=== PATIENT | female | born 2000 | race American Indian/Alaskan Native ===

== ENCOUNTER 2020-09-22 09:19 | Emergency (ER) | payer BC, OTHER ==
--- NOTE | 2020-09-22 09:50 | EDM.PDOC ---
ED HPI GENERAL MEDICAL PROBLEM - General Chief Complaint: ENT Problem Stated Complaint: right ear heard a pop now load buzzing&sore Time Seen by Provider: 09/22/20 09:40 Source of Information: Reports: Patient History Limitations: Reports: No Limitations - History of Present Illness INITIAL COMMENTS - FREE TEXT/NARRATIVE: This 20 yo female patient reports to the ED with right ear pain. The patient reports she woke up this morning at 0630 to a "pop" in her right ear. Since that time, the patient has been experiencing muffled hearing, ringing in her right ear and pain to the right ear. The patient does have a history of numerous ear infections as well as environmental allergies. Onset: Today Onset Date: 09/22/20 Onset Time: 06:30 Duration: Constant Location: Reports: Head (Right ear) Quality: Reports: Ache, Dull, Pressure Severity: Moderate Improves with: Reports: None Worsens with: Reports: None Context: Reports: Other Right Ear Pain Score (Numeric/FACES): 6 - Related Data Allergies Allergy/AdvReac Type Severity Reaction Status Date / Time azithromycin Allergy Hives Verified 09/22/20 09:27 Home Meds: Home Meds Amitriptyline [Elavil] 10 mg PO DAILY 09/22/20 [History] Norethindrone-Ethin. Estradiol [Nortrel 7-7-7-28 Tablet] 1 tab PO DAILY 09/22/20 [History] Vits #93/Iron Fum/FA [ Formula Tablet] 1 tab PO DAILY 09/22/20 [History] Past Medical History HEENT History: Reports: Otitis Media Psychiatric History: Reports: Other (See Below) Other Psychiatric History: insomnia Social & Family History - Tobacco Use Tobacco Use Status *Q: Never Tobacco User - Recreational Drug Use Recreational Drug Use: No ED ROS ENT - Review of Systems Review Of Systems: Comprehensive ROS is negative, except as noted in HPI. ED EXAM, ENT - Physical Exam Exam: See Below Exam Limited By: No Limitations General Appearance: Alert, WD/WN, Mild Distress Eye Exam: Bilateral Eye: EOMI, Normal Inspection, PERRL Ears: Other (Right TM retracted) Nose: Normal Inspection, Normal Mucousa, No Blood Mouth/Throat: Normal Inspection, Normal Gums, Normal Lips, Normal Oropharynx, Normal Teeth Head: Atraumatic, Normocephalic Neck: Normal Inspection, Supple, Non-Tender, Full Range of Motion Respiratory/Chest: No Respiratory Distress, Lungs Clear, Normal Breath Sounds, No Accessory Muscle Use, Chest Non-Tender Cardiovascular: Normal Peripheral Pulses, Regular Rate, Rhythm, No Edema, No Gallop, No JVD, No Murmur, No Rub GI/Abdominal: Normal Bowel Sounds, Soft, Non-Tender, No Organomegaly, No Distention, No Abnormal Bruit, No Mass (Female) Exam: Deferred Rectal (Female) Exam: Deferred Back: Normal Inspection, Full Range of Motion Extremities: Normal Inspection, Normal Range of Motion, Non-Tender, No Pedal Edema, Normal Capillary Refill Neurological: Alert, Oriented, CN II-XII Intact, Normal Cognition, Normal Gait, Normal Reflexes, No Motor/Sensory Deficits Psychiatric: Normal Affect, Normal Mood Skin: Warm, Dry, Intact, Normal Color, No Rash Lymphatic: No Adenopathy Course - Vital Signs Last Recorded V/S: Last Vital Signs Temp 36.0 C L 09/22/20 09:28 Pulse 85 09/22/20 09:28 Resp 16 09/22/20 09:28 BP 134/90 09/22/20 09:28 Pulse Ox 99 09/22/20 09:28 Departure - Departure Time of Disposition: 09:50 Disposition: Home, Self-Care 01 Condition: Fair Clinical Impression: Eustachian tube dysfunction Qualifiers: Laterality: right Qualified Code(s): H69.81 - Other specified disorders of Eustachian tube, right ear - Discharge Information *PRESCRIPTION DRUG MONITORING PROGRAM REVIEWED*: Not Applicable *COPY OF PRESCRIPTION DRUG MONITORING REPORT IN PATIENT JOCE: Not Applicable Instructions: Eustachian Tube Dysfunction Care Plan Goals: The patient was advised of the examination results during the visit. The patient was encouraged to take antihistamines and decongestants to reduce inflammation. The patient may taken Tylenol or ibuprofen as directed for temporary symptom relief. If the patient has any additional symptoms or concerns, the patient should either return to the emergency department or visit her primary care facility. Sepsis Event Note (ED) - Evaluation Sepsis Screening Result: No Definite Risk - Focused Exam Vital Signs: Vital Signs Temp Pulse Resp BP Pulse Ox 09/22/20 09:28 36.0 C L 85 16 134/90 99
== END 2020-09-22 10:01 | disposition home or self-care (01) ==
LOC: DL.ED 09:19
DX: H69.91 Unspecified Eustachian tube disorder, right ear (principal); Z88.1 Allergy status to other antibiotic agents
CPT/HCPCS: 99282; 99283